=== PATIENT | female | born 1945 | race Caucasian/White ===

== ENCOUNTER 2024-03-20 21:41 | Emergency (ER) | payer OTHER, SELFPAY ==
[2024-03-20 21:42] VITALS: BP 146/86
[2024-03-20 22:00] VITALS: BP 137/71
[2024-03-20] MEDS: MORPHINE SULFATE 4 MG IV (22:24)
--- NOTE | 2024-03-20 22:27 | ED.MUSCINJ ---
HPI-Injury
General
Chief Complaint: Fall
Source: patient and family
Exam Limitations: none
Time Seen by Provider: 03/20/24 21:47
Nursing documentation reviewed up to this point in time: agreed with
History of Present Illness-Injury
Is this injury a work related problem?: No
Is pt an associate of [facility]?: No
Initial Injury comments:
79-year-old female limited past medical history left arm pain she stepped a toy ball of her dog, fall on an outstretched arm has pain in her left shoulder, no head strike no neck pain no tongue bite no blood thinners no chest pain no abdominal pain
no numbness or tingling
Past History
Past History
ED Past Surgical History: Orthopedic
Social History
Tobacco: Non-smoker
Alcohol: Occasional
Drug: None
Personal:
Living: with family
Employment: Retired
Review of Systems
Review of Systems
All Other Systems: Not applicable
EENT: Reports no symptoms
Respiratory: Reports no symptoms
Cardiac: Reports no symptoms
ABD/GI: Reports no symptoms
Musculoskeletal: Reports joint pain
Neurological: Reports no symptoms; Denies headache, weakness or numbness
Endocrine: Reports no symptoms
Phy Exam
Physical Exam
Physical Exam:
Physical Exam
General: no apparent distress, not acutely ill
Neck: No tongue bite no posterior neck pain
Heart: Regular
Lungs: no acute respiratory distress. clear bilaterally
Abdomen: Nontender
Neuro: alert and oriented. no focal neurological deficits
Skin: no rash
Psychiatric: well kept. interactive and cooperative
Extremities: No deformity of the left shoulder no deformity over the AC joint able to flex her elbow minimal tenderness over the left proximal humerus strong radial pulse actually nerve sensation intact
Injury Course
Orders/Labs/Results
Orders:
Orders
03/20/24 22:18
Morphine Sulfate 4 mg IV NOW STA
CR Shoulder, Trauma - Left Urgent
Reason For Exam: fall
Humerus, Left 2 Views [CR Humerus - Left Min 2 Views*] Urgent
Comment:
Reason For Exam: fall
03/20/24 23:03
Sling Left-Treatment ONCE
Procedures
Splint Check
Splint checked by provider?: No
Splinting/Sling Placement
Left Arm:
Procedure completed by: rn
Pre-splint extermity exam: neurovascular intact
Splint checked by provider?: No
Type of sling: sling fitted
Normal distal neurovascular exam?: Yes
MDM/Problems Addressed
Differential Diagnosis Includes:
Contusion AC separation humerus fracture ligamentous injury shoulder dislocation
MDM/Problems Addressed:
Shoulder pain fall
*Radiology
Radiology exam reviewed: preliminary read by ED provider
*Pulse Oximetry
Patient hypoxic: no
*Critical Care Note
Total Time (30-74mins, 75-104mins- exclusive of procedures): Not Applicable
Update Note
Update Note:
Update x-ray noted looks like a subtle proximal humerus fracture formal report pending will mobilize follow-up with orthopedist
ED Attending Note
-
Portions of this chart may have been created with voice recognition software.� Occasional wrong word or��sound alike� substitutions may have occurred due to the inherent limitations of voice recognition software.
Discharge Plan
Departure
Patient Disposition: Home (Routine Discharge)
Date of Disposition: 03/20/24
Time of Disposition: 23:04
Patient with high blood pressure during this ER visit?: No
Condition: Good
Discharge Problem:
Closed fracture of shoulder, Broken humerus
Instructions: Preventing falls in adults, Shoulder or upper arm fracture
Prescriptions:
No Action
polyethylene glycol 3350 [Miralax] 17 gram Powder In Packet
17 g PO DAILY
atorvastatin 10 mg Tablet
10 mg PO HS
Vitamin D3
1 tab PO DAILY
folic acid
1 tab PO DAILY
vitamin E
1 tab PO DAILY
oxycodone 5 mg tablet
5 mg PO Q6H PRN (Reason: moderate-severe pain) Qty: 30 0RF
Rx Instructions:
1 tab for moderate pain, 2 if severe
Dx total joint. Ongoing therapy.
celecoxib [Celebrex] 200 mg capsule
200 mg PO DAILY Qty: 14 0RF
Rx Instructions:
Take with food.
DO NOT take within 2 hours of Aspirin post-surgery.
dexamethasone 4 mg tablet
4 mg PO BID Qty: 7 0RF
Rx Instructions:
Start night of discharge and take 2x daily until finished.
Take with food.
mupirocin 2 % ointment
1 applic intranasal BID Qty: 1 0RF
Patient Comments:
Patient administerd this morning @ 04:20. Patient started this medication on 06/30/22 in the morning.
ondansetron HCl 4 mg tablet
4 mg PO Q6H PRN (Reason: nausea and vomiting) Qty: 20 0RF
Rx Instructions:
Take 1/2 hour prior to Oxycodone if experiencing recurrent nausea.
pantoprazole 40 mg tablet,delayed release (DR/EC)
40 mg PO DAILY Qty: 30 0RF
Rx Instructions:
Take daily while on Celebrex and Aspirin to reduce GI upset.
acetaminophen 325 mg capsule
650 mg PO Q4HWA Qty: 60 0RF
Rx Instructions:
DO NOT exceed >4000 mg daily.
aspirin 325 mg tablet
325 mg PO DAILY Qty: 30 0RF
Rx Instructions:
Take daily x4 weeks for blood clot prevention.
docusate sodium [Colace] 100 mg capsule
100 mg PO BID Qty: 30 0RF
sennosides [senna] 8.6 mg tablet
17.2 mg PO BID PRN (Reason: constipation) Qty: 30 0RF
Rx Instructions:
If no bowel movement occurs 2 days post-surgery, add to bowel regimen of Colace and Miralax.
Prolia 60 mg/mL Syringe
60 mg SC [id number] Qty: 1 0RF
Patient Comments:
Last injection was in January.
Rx Instructions:
DO NOT RESTART post-procedure until advised by surgeon to do so.
Referrals:
Jayme Boles DO [Family Provider] -
Jim Gtz MD [Active] - Next open appointment
Activity Restrictions/Additional Instructions:
Use sling ice, pain medication as needed
Follow-up with [facility] orthopedics Dr. Gtz or his associates
Interventions
Interventions:
*Risk Screen - Suicide Last Done: 03/20/24 21:42
*General Assessment Last Done: 03/20/24 21:42
*Neglect/Abuse Screening Last Done: 03/20/24 21:42
Discharge Date and Time
Print Language: TONGAN
== END 2024-03-20 23:40 | disposition home or self-care (01) ==
LOC: EMR 21:41
PROVIDERS: EMERGENCY PHYSICIAN Emergency Medicine; FAMILY PHYSICIAN Family Medicine
DX: S42.202A Unspecified fracture of upper end of left humerus, initial encounter for closed fracture (principal); W18.09XA Striking against other object with subsequent fall, initial encounter
CPT/HCPCS: 96374; 99284; 73030; 73060

== ENCOUNTER → 2024-04-02 12:08 | Outpatient (REF) | payer OTHER, SELFPAY | LOC: PAVMRI 12:08 | PROVIDERS: ATTENDING PHYSICIAN Physician Assistant Medical; FAMILY PHYSICIAN Family Medicine | DX: S42.295A Other nondisplaced fracture of upper end of left humerus, initial encounter for closed fracture (principal); M25.512 Pain in left shoulder | CPT/HCPCS: 73221 ==

== ENCOUNTER → 2024-08-14 11:23 | Outpatient (REF) | payer OTHER, SELFPAY | LOC: WDC 11:23 | PROVIDERS: ATTENDING PHYSICIAN Family Medicine; FAMILY PHYSICIAN Family Medicine | DX: Z12.31 Encounter for screening mammogram for malignant neoplasm of breast (principal) | CPT/HCPCS: 77063; 77067 ==

== ENCOUNTER → 2024-11-11 12:35 | Outpatient (REF) | payer OTHER, SELFPAY | LOC: RCS 12:35 | PROVIDERS: ATTENDING PHYSICIAN Internal Medicine; FAMILY PHYSICIAN Student in an Organized Health Care Education/Training Program | DX: R06.09 Other forms of dyspnea (principal); R07.89 Other chest pain | CPT/HCPCS: 93017 ==

== ENCOUNTER → 2024-11-20 11:23 | Outpatient (REF) | payer OTHER, SELFPAY | LOC: HWRCS 11:23 | PROVIDERS: ATTENDING PHYSICIAN Internal Medicine; FAMILY PHYSICIAN Student in an Organized Health Care Education/Training Program | DX: R94.31 Abnormal electrocardiogram [ECG] [EKG] (principal) | CPT/HCPCS: 78452; 93017; A9500 ==